=== PATIENT | male | born 1940 | race Caucasian/White ===

== ENCOUNTER 2016-08-30 03:05 | Inpatient (IN) ==
--- NOTE | 2016-08-30 03:53 | PROVIDER DOCUMENTATION ---
HPI-Musculoskeletal Pain/Inj - GENERAL Chief Complaint: Hip Injury Stated Complaint: leg pain Time Seen by Provider: 08/30/16 03:33 Source: patient, family - HX OF PRESENT ILLNESS-MUSKULOSKELTAL Nature of Presenting Problem: Pt c/o pain to R side after fall this am ~0100. says he fell about a week ago, did not see MD. Has had troublke walking since. His feet and leds have been swelling today. He did not hit his head in either fall, no LOC. Denies CP and SOB. No abd pain, no N/V. He is falling asleep as I talk to him Quality of Pain: reports: other (unable to determine) Severity in ED: moderate Onset/Duration: 1-3 hours ago Timing: still present Modifying Factors: worse with: movement, palpation Any recent injury?: Yes Locality of Occurance: Home Similar Symptoms Previously?: No Recently seen or treated by another doctor?: No - FALL INJURY Location of Pain/Injury: reports: pelvis, other (R hip) Pain Radiation: reports: no radiation Reason for Fall: reports: lost balance, other (see HPI) Loss of Consciousness: no loss of consciousness Injury Associated Symptoms: reports: joint pain - HIP/PELVIS PAIN/INJURY Hip Pain Location: reports: hip (R) Pain Radiation: reports: no radiation - LOWER EXTREMITY PAIN/INJURY Lower Extremities Pain: hip: right Context / Method of Injury: reports: fell Review of Systems - Adult - REVIEW OF SYSTEMS - ADULT Constitutional: reports: no symptoms reported Eyes: reports: no symptoms reported Ears, Nose, Mouth & Throat: reports: no symptoms reported Cardiovascular: reports: edema Respiratory: reports: no symptoms reported Gastrointestinal: reports: no symptoms reported Genitourinary: reports: no symptoms reported Musculoskeletal: reports: see HPI Integumentary: reports: no symptoms reported Neurological: reports: no symptoms reported Psychiatric: reports: no symptoms reported Endocrine: reports: no symptoms reported Hematologic/Lymphatic: reports: no symptoms reported Allergic/Immunologic: reports: no symptoms reported Past History - Adult - PAST MEDICAL HISTORY-ADULT Review of Records: reports: Medications Reviewed Major Childhood Illnesses: reports: denies history Cardiovascular: reports: denies history Respiratory: reports: COPD - IMMUNIZATION STATUS Childhood Immunizations: See Nurse Assessment Flu Vaccine: See Nurse Assessment - FAMILY HISTORY Family History: reviewed, not pertinent - SOCIAL HISTORY Smoking: denies Physical Exam-Injury Related - Physical Exam-Injury Related Initial Vital Signs Reviewed: Yes General Appearance: no apparent distress, other (somulent) Eyes: PERRL/EOMI, pink conjunctivae Head, Ears, Nose, Mouth & Throat: normocephalic/atraumatic, moist mucous membranes, normal ENT inspection, pharynx normal Neck: full range of motion, supple, normal inspection Respiratory: lungs clear, normal breath sounds, no pleuratic chest pain, no respiratory distress Cardiovascular: regular rate, rhythm, no gallop, no murmur Abdominal Exam: non tender, soft Back Exam: normal inspection, no CVA tenderness, no vertebral tenderness Extremity: pedal edema (4 + pretibial bilat), tenderness (R hip) Integumentary: normal color, warm/dry Neurologic: grossly normal, no motor/sensory deficits Psych/Mental Status: normal thought content, normal thought process Progress - PLAN OF CARE/RESULTS Progress/Plan/Lab Results: Vital Signs - 8 hr 08/30/16 03:31 Temperature 98.1 F Pulse Rate 96 H Respiratory Rate 20 Blood Pressure 173/75 O2 Sat by Pulse Oximetry 96 Laboratory Results - last 24 hr 08/30/16 08/30/16 03:30 03:30 WBC 8.42 RBC 3.51 L Hgb 10.8 L Hct 34.0 L MCV 96.9 MCH 30.8 MCHC 31.8 L RDW Std Deviation 12.9 Plt Count 226 MPV 9.1 Immature Gran % (Auto) 0.2 Neut % (Auto) 77.7 H Lymph % (Auto) 12.4 L Hanson % (Auto) 9.0 Eos % (Auto) 0.5 Baso % (Auto) 0.2 Immature Gran # (Auto) 0.02 Neut # (Auto) 6.54 H Lymph # (Auto) 1.04 L Hanson # (Auto) 0.76 H Eos # (Auto) 0.04 Baso # (Auto) 0.02 Sodium 136 Potassium 4.2 Chloride 91 L Carbon Dioxide 35 Anion Gap 10 BUN 20 Creatinine 0.9 Estimated GFR/1.73 m2 > 60 BUN/Creatinine Ratio 22 Glucose 79 Calculated Osmolality 273 Calcium 9.6 Total Bilirubin 0.44 AST 16 ALT 10 Alkaline Phosphatase 130 H Total Protein 6.9 Albumin 4.0 Globulin 2.9 Albumin/Globulin Ratio 1.4 Orders Category Date Time Status CHEST-1 VIEW [RAD] Stat Exams 08/30/16 04:20 Taken FEMUR 1 VIEW RIGHT [RAD] Stat Exams 08/30/16 03:35 Taken HEAD W/O CONTRAST [CT] Stat Exams 08/30/16 03:58 Taken HIP W/PELVIS BILAT 2 VIEWS [RAD] Stat Exams 08/30/16 03:35 Taken ABG [RESP] Routine Lab 08/30/16 03:46 Ordered CBC WITH DIFF [HEME] Stat Lab 08/30/16 03:30 Completed CMP [COMPREHENSIVE METABOLIC PANEL] [CHEM] Stat Lab 08/30/16 03:30 Completed PROTIME WITH INR [COAG] Stat Lab 08/30/16 03:30 Received PTT [COAG] Stat Lab 08/30/16 03:30 Received URINALYSIS W/POSS RFLX CULT [URINALYSIS] Stat Lab 08/30/16 04:30 Uncollected EKG [EKG] Stat Ther 08/30/16 04:30 Ordered Result Diagrams: 08/30/16 03:30 08/30/16 03:30 - XRAY 1 XRAY Study: Hip Impression: Abnormal XRAY Interpretation: R intertroch hip fx - CONSULTS/PCP/HOSPITALIST Notification #1 *Consult/PCP/Hospitalist*: García Time Discussed: 04:30 Consult Disposition: Will see in ED, Admit #2 Consult: Terrie Time Discussed: 04:40 Reason/Comments: hip fx Consult Disposition: other (will see as consult) Departure - Departure Date of Disposition Decision: 08/30/16 Time of Disposition Decision: 04:57 DIAGNOSIS: Intertrochanteric fracture of right hip Qualifiers: Encounter type: initial encounter Fracture type: closed Fracture alignment: displaced Qualified Code(s): S72.141A - Displaced intertrochanteric fracture of right femur, initial encounter for closed fracture Disposition: ADMITTED INPATIENT 09 Certified Medical Emergency: Emergent Condition: Good - Critical Care Note This patient required my direct & personal management of CC.: No
[2016-08-30 04:17] LABS: MANUAL DIFF NEEDED? NO
[2016-08-30 04:22] LABS: BASO% 0.2 % (0.0-0.8); EOS# 0.04 X1000 (0.0-0.7); EOS% 0.5 % (0.0-10.0); HEMOGLOBIN 10.8 g/dL (14.0-18.0); IMM GRAN# 0.02 X1000 (0.0-0.04); IMM GRAN% 0.2 % (0.0-0.5); LYMPH# 1.04 X1000 (1.2-3.4); LYMPH% 12.4 % (20.5-51.1); MCH 30.8 PG (27-31); MCHC 31.8 g/dL (33-37); MCV 96.9 FL (81-99); MONO# 0.76 X1000 (0.11-0.59); MPV 9.1 FL (7.4-10.4); NEUT% 77.7 % (42.2-75.2); PLT 226 X1000 (130-400); RBC 3.51 XMIL (4.7-6.1)
[2016-08-30 04:46] LABS: AGAP 10; ALKALINE PHOSPHATASE 130 U/L (32-122); BUN 20 mg/dL (8-22); CALCIUM 9.6 mg/dL (8.8-10.2); CHLORIDE 91 mmol/L (98-107); COSMO 273; GOT 16 U/L (10-34); GPT 10 U/L (10-44); POTASSIUM 4.2 mmol/L (3.5-5.1); SODIUM 136 mmol/L (136-145); TCO2 35 mmol/L (25-35); TOTAL BILIRUBIN 0.44 mg/dL (0.20-1.00); TOTAL PROTEIN 6.9 g/dL (6.3-8.3)
[2016-08-30 04:58] LABS: INR 1.06; PROTIME 11.2 Seconds (9.2-11.7); PTT 28.5 Seconds (22.0-36.0)
[2016-08-30 05:00] LABS: ALLEN TEST YES; BE 11.7 mmoll (-3.0-3.0); BLOOD TYPE ARTERIAL; DRAW SITE R RADIAL; METHB 0.7 % (0.0-1.5); O2(CT) 13.3 mL/dL (15.0-23.0); PO2(98.6) 69 mmHg (60-100); SAMPLE BLOOD; SAO2 96.8 % (95.0-100.0); pH(98.6) 7.43 (7.35-7.45)
[2016-08-30 05:01] LABS: MODALITY CANNULA
[2016-08-30 05:02] LABS: PCO2(98.6) 57 mmHg (35-45)
[2016-08-30] MEDS ORDERED: DILAUDID IV ONE (05:08)
[2016-08-30 05:16] LABS: URINE CULTURE NEEDED? NO; URINE MICRO REVIEW NEEDED? NO; URINE SOURCE CATH
[2016-08-30 05:36] LABS: BILIRUBIN URINE NEGATIVE (NEGATIVE); BLOOD URINE NEGATIVE (NEGATIVE); COLOR YELLOW; GLUCOSE URINE NEGATIVE (NEGATIVE); LEUKOCYTES URINE NEGATIVE (NEGATIVE); NITRITE URINE NEGATIVE (NEGATIVE); PROTEIN URINE TRACE mg/dL (NEGATIVE); SP GRAVITY URINE 1.018; TURBIDITY URINE CLEAR (CLEAR); UROBILINOGEN URINE NORMAL (NORMAL)
[2016-08-30 05:38] LABS: UR EPITHELIAL CELLS <10 /HPF (<10); URINE BACTERIA NEGATIVE /HPF; URINE RBC <10 /HPF (<10); URINE WBC <10 /HPF (<10)
--- NOTE | 2016-08-30 05:40 | HISTORY AND PHYSICAL ---
PRIMARY CARE PHYSICIAN: Dr. Cintron. CHIEF COMPLAINT: Status post fall. HISTORY OF PRESENTING ILLNESS: A 72-year-old male with a history of diabetes mellitus type 2, COPD, hypertension, who apparently had presented to the emergency department after he had a fall earlier in the night. Patient states that he developed a moderate amount of pain in the right hip. As for his family members, patient had a fall about a week ago also. He was evaluated in the ER. He had imaging done, and as per ER physician, it did show a right intertrochanteric fracture. Subsequently, patient will need hospitalization for further orthopedic evaluation. At the time my examination, he had denied any headache, fever, chills, chest pain, shortness of breath, hemoptysis or any weight changes. Complained of moderate amount of pain in the right hip. PAST MEDICAL HISTORY: Includes COPD, diabetes mellitus type 2, CHF, hypertension, hyperlipidemia, CVA. PAST SURGICAL HISTORY: Right carotid arterectomy. Right eye surgery. Back surgery. ALLERGIES: Codeine and penicillin. CURRENT MEDICATIONS: Listed in the MAR. SOCIAL HISTORY: He is a former smoker. He currently dips snuff. Denies any history of alcohol or illicit drug use. FAMILY HISTORY: Positive for coronary disease in mother. REVIEW OF SYSTEMS: Twelve point review of systems is listed as in HPI. Other systems negative. PHYSICAL EXAMINATION: GENERAL: Cooperative, friendly male. He is resting more comfortably now. VITAL SIGNS: Temperature 98.1 degrees, pulse 96, respirations 20, blood pressure 173/75, saturating 96% on room air. HEENT: Atraumatic, normocephalic. Extraocular movements intact. PERRLA. NECK: Supple. CHEST: Clear to auscultation. CARDIOVASCULAR: Regular rate and rhythm. ABDOMEN: Soft. Positive bowel sounds. EXTREMITIES: Right hip tenderness. NEURO: He is awake, alert, oriented x2. : No bladder distention. SKIN: Warm. LABORATORIES AND STUDIES: WBCs 8.42, hemoglobin 10.8, hematocrit 34.0, platelets 226,000. Sodium 136, potassium 4.2, chloride 91, CO2 35, BUN is 20, creatinine 0.9, glucose is 79. ASSESSMENT: A 75-year-old male with a history of COPD, hypertension and diabetes mellitus type 2. Apparently, had a fall earlier yesterday. He developed a moderate amount of pain in the right hip. He was evaluated in the ER and had imaging which was consistent with right intertrochanteric hip fracture. Subsequently, he will need hospitalization for further management. ASSESSMENT: 1. Right hip fracture. 2. Diabetes mellitus type 2. 3. Hypertension. PLAN: 1. We will admit patient to medical floor with telemetry. 2. We will keep patient NPO and give him adequate pain control. 3. We will consult Orthopedics. 4. We will monitor blood glucose and put patient on sliding scale insulin regimen. 5. We will monitor blood pressure. Resume antihypertensive agent. 6. The patient is on deep vein thrombosis prophylaxis with sequential compression devices. 7. We will continue to follow and reassess. cc: Rsuty Mariano MD
--- NOTE | 2016-08-30 05:43 | Diag Imaging Result Doc PS360 ---
EXAM: CHEST-1 VIEW HISTORY: falls TECHNIQUE: Supine AP COMPARISON: 03/09/2016 FINDINGS: The left hemidiaphragm is elevated. This is similar to the prior exam. The vessels are not distended. No cardiomegaly. No pleural effusions identified. No contusions or pneumothoraces. IMPRESSION: Negative chest. Electronically signed by Padilla Hussein 08/30/2016 5:41 AM
--- NOTE | 2016-08-30 05:49 | Diag Imaging Result Doc PS360 ---
EXAM: HIP W/PELVIS BILAT 2 VIEWS HISTORY: FALL TECHNIQUE: Three views COMPARISON: None. FINDINGS: There is a fracture to the right femoral neck. Femoral head remains in the acetabulum. The femoral shaft is slightly rotated. IMPRESSION: Right femoral neck fracture Electronically signed by Padilla Hussein 08/30/2016 5:46 AM
[2016-08-30] MEDS ORDERED: ZOFRAN IV PRN (05:53)
--- NOTE | 2016-08-30 05:55 | Diag Imaging Result Doc PS360 ---
EXAM: FEMUR 1 VIEW RIGHT HISTORY: FALL TECHNIQUE: Two views COMPARISON: None. FINDINGS: There is a femoral neck fracture. Femoral head remains in the acetabulum. Femoral shaft is rotated. The mid shaft is poorly imaged. IMPRESSION: Right femoral neck fracture. Electronically signed by Padilla Hussein 08/30/2016 5:53 AM
--- NOTE | 2016-08-30 06:04 | Diag Imaging Result Doc PS360 ---
EXAM: HEAD W/O CONTRAST HISTORY: AMS TECHNIQUE: COMPARISON: 03/06/2016 FINDINGS: No parenchymal hemorrhage. No epidural or subdural hematoma. No subarachnoid hemorrhage. No mass identified on this noncontrasted exam. No hydrocephalus. There are chronic microvascular ischemic changes in addition to atrophy. Small old lacunae in the left thalamus. No sinus opacification. IMPRESSION: No hemorrhage. Atrophy with chronic microvascular ischemic changes in addition to a tiny old left infarct. A preliminary report was given at 4:54 AM. Electronically signed by Padilla Hussein 08/30/2016 6:01 AM
[2016-08-30] MEDS: HUMULIN R SUBQ SCH ×4 (06:49→22:16)
[2016-08-30] MEDS: DUONEB (A & A) INH SCH ×5 (07:49→23:08)
--- NOTE | 2016-08-30 13:05 | PROGRESS NOTE ---
DATE: 08/30/2016 SUBJECTIVE: Mr. Joshi's blood sugar is 115. He had a fracture of the right femoral neck. His vital signs are stable at the present time. He is supposed to have surgery tomorrow under spinal anesthesia. He gets hydromorphone IV as well as breathing treatment. Overall condition is unchanged. He is seen by Dr. Falcon. -8 cc: Uriel Cintron MD
[2016-08-30] MEDS ORDERED: LASIX PO PRN (14:12)
--- NOTE | 2016-08-30 14:50 | CONSULTATION ---
DATE OF CONSULTATION: 08/30/2016 CHIEF COMPLAINT: I broke my hip. HISTORY OF PRESENT ILLNESS: 75-year-old male with multiple medical issues status post a fall yesterday evening. He is admitted the hospital with right hip pain. He was found to have a displaced femoral neck fracture. I was consulted for orthopedic management. Presently he reports pain and tenderness about the right hip. PAST MEDICAL HISTORY: Significant for COPD, diabetes type 2, heart failure, hypertension, hyperlipidemia and CVA. He has a history of carotid artery endarterectomy and eye surgery and back surgery in the past. MEDICATIONS: Are as listed per his MAR. ALLERGIES: Codeine and penicillin. SOCIAL HISTORY: Former smoker, does not use any drug or alcohol use. EXAMINATION: Today reveals tenderness over the right hip. Compartments were soft. The leg shortened and externally rotated. He is nontender over the remainder of the leg. IMAGING: X-rays reviewed show a displaced femoral neck fracture of the right hip. ASSESSMENT: Displaced right femoral neck fracture. PLAN: The patient has been on Plavix. Will need to let that dissipate and consider hemiarthroplasty of the hip in 1-2 days. Will probably plan on this Thursday after the Plavix has resolved somewhat and he is medically stabilized. Thanks once again for asking us to see him. Sincerely, cc: MD Uriel Mason MD
[2016-08-30] MEDS: HYZAAR 50/12.5 MG PO SCH (15:21)
[2016-08-30] MEDS: PRILOSEC PO SCH (15:22)
[2016-08-30] MEDS: GLUCOPHAGE XR PO SCH ×2 (15:22→18:25)
[2016-08-30] MEDS: FLOMAX PO SCH (15:23)
[2016-08-30] MEDS: AMARYL PO SCH ×2 (15:23→18:24)
[2016-08-30] MEDS: NORCO-7.5 PO SCH ×3 (15:23→19:34)
[2016-08-30] MEDS ORDERED: DUONEB (A & A) INH SCH (15:30)
[2016-08-30] MEDS: ZYLOPRIM PO SCH (22:18)
[2016-08-30] MEDS: ATIVAN PO SCH (22:18)
[2016-08-30] MEDS: NEURONTIN PO SCH (22:18)
[2016-08-31] MEDS: DUONEB (A & A) INH SCH ×4 (04:00→15:28)
[2016-08-31 05:42] LABS: MANUAL DIFF NEEDED? NO
[2016-08-31 06:00] LABS: BASO% 0.3 % (0.0-0.8); EOS# 0.04 X1000 (0.0-0.7); EOS% 0.5 % (0.0-10.0); HEMOGLOBIN 10.2 g/dL (14.0-18.0); LYMPH# 0.74 X1000 (1.2-3.4); LYMPH% 9.7 % (20.5-51.1); MCH 30.5 PG (27-31); MCHC 31.9 g/dL (33-37); MCV 95.8 FL (81-99); MONO# 0.83 X1000 (0.11-0.59); MONO% 10.9 % (1.7-9.3); MPV 9.7 FL (7.4-10.4); NEUT% 78.6 % (42.2-75.2); PLT 196 X1000 (130-400); RBC 3.34 XMIL (4.7-6.1)
[2016-08-31 06:11] LABS: AGAP 9; BUN 16 mg/dL (8-22); CALCIUM 9.1 mg/dL (8.8-10.2); CHLORIDE 90 mmol/L (98-107); COSMO 268; POTASSIUM 4.3 mmol/L (3.5-5.1); SODIUM 133 mmol/L (136-145); TCO2 34 mmol/L (25-35)
[2016-08-31] MEDS: HUMULIN R SUBQ SCH ×3 (07:25→17:27)
[2016-08-31] MEDS ORDERED: NEOSPORIN G.U. IRRIGANT ONE (07:26)
[2016-08-31] MEDS ORDERED: KEFZOL 2 GM/D5W 4 GM/100 ML IVPB ONE (07:49)
[2016-08-31] MEDS ORDERED: BIDEX PO SCH (09:00)
[2016-08-31] MEDS ORDERED: JANUVIA PO SCH (09:00)
[2016-08-31] MEDS ORDERED: MILK OF MAGNESIA PO PRN (10:33)
[2016-08-31] MEDS ORDERED: ZOFRAN IV PRN (10:33)
[2016-08-31] MEDS ORDERED: HALDOL IV PRN (10:33)
[2016-08-31] MEDS ORDERED: NS 1,000 ML IV SCH (10:33)
[2016-08-31] MEDS ORDERED: MORPHINE IV PRN (10:33)
[2016-08-31] MEDS ORDERED: OXY IR PO PRN (10:33)
[2016-08-31] MEDS: NEURONTIN PO SCH (11:53)
[2016-08-31] MEDS: GLUCOPHAGE XR PO SCH ×3 (11:53→16:47)
[2016-08-31] MEDS: HYZAAR 50/12.5 MG PO SCH (11:54)
[2016-08-31] MEDS: ATIVAN PO SCH (11:54)
[2016-08-31] MEDS: ZYLOPRIM PO SCH (11:54)
[2016-08-31] MEDS: NORCO-7.5 PO SCH ×3 (11:54→16:47)
[2016-08-31] MEDS: AMARYL PO SCH ×3 (11:54→16:47)
[2016-08-31] MEDS: PRILOSEC PO SCH (11:55)
[2016-08-31] MEDS: FLOMAX PO SCH (11:55)
[2016-08-31] MEDS: TYLENOL PO SCH ×3 (14:35→18:15)
--- NOTE | 2016-08-31 15:12 | PROGRESS NOTE ---
DATE: 08/31/2016 SUBJECTIVE: had his hip surgery redone on the right side by Dr. Falcon. His hemoglobin is 10.2, hematocrit is 32, electrolyte status is stable. BUN and creatinine are normal. Arterial blood gases had revealed a PO2 of 69, pCO2 of 57, which is fair for him. Blood sugar is stable. OBJECTIVE: Vital signs: Stable. Lungs: Clear. We will continue with the current management. cc: Uriel Cintron MD
[2016-08-31 15:26] VITALS: BP 100/58
[2016-08-31] MEDS ORDERED: FENTANYL ONE (15:51)
[2016-08-31] MEDS ORDERED: DIPRIVAN 1% ONE (15:51)
[2016-08-31] MEDS ORDERED: KEFZOL 1 GM/D5W 1 GM/50 ML IVPB IV SCH (16:00)
--- NOTE | 2016-08-31 16:07 | OPERATIVE NOTE ---
PROCEDURE DATE: 08/31/2016 PREOPERATIVE DIAGNOSIS: Displaced right femoral neck fracture. POSTOPERATIVE DIAGNOSIS: Displaced right femoral neck fracture. PROCEDURE: Hemiarthroplasty with bipolar hip implant, right hip. SURGEON: Levon Falcon MD. ANESTHESIA: General. COMPLICATION: None. PROCEDURE IN DETAIL: This is a 75-year-old male with a displaced femoral neck fracture, presents for surgical reduction and fixation of the hip. Risks, benefits, and no guarantees were discussed and he is willing to proceed. He was taken to the operating room and satisfactory anesthesia obtained. The right hip was prepped and draped in the usual sterile fashion. A time-out was taken to confirm operative site, procedure, and patient. The patient was positioned in the lateral position with the right hip upward on pegboard, bony prominences padded, and neutral alignment maintained of the spine. Prep and drape of the right hip was undertaken. After a proper time-out for patient, site, procedure, and extremity, the posterior approach to the right hip was undertaken. Roughly a 10-12 cm incision was made centered over the greater trochanter. Dissection was carried down through the skin and deep fascia. A Charnley retractor was inserted. The piriformis and external rotators were released off the back of the hip capsule and reflected to protect the sciatic nerve. A capsulotomy incision was made to expose the femoral neck fracture. An oscillating saw was used to smooth off the femoral neck at roughly 45 degrees angle. The femoral head was removed and sized to a size 57 outer diameter head. Sequential broaching with a QBEuy Corail broach system was undertaken up to a size 16 stem. This had good axial and rotational stability. High offset collar/neck was best utilized for reduction with a +5 neck length. The trial implant was removed and a Corail high-offset size 16 stem impacted into the proximal femur with secure axial and rotational stability in roughly 10 degrees of anteversion. A 28 inner diameter head with a +5 neck with a 57 outer diameter bipolar head was impacted on the Lopez taper and the hip reduced. Final range of motion revealed no instability in extension with 90 degrees of flexion and neutral adduction and internal rotation at 45 degrees without any dislocation. The wound was copiously irrigated with irrigant and then closed with 0 Vicryl in the posterior capsule and piriformis, #1 Vicryl in the deep fascia, 2-0 Vicryl in the subcutaneous, and skin alvina on the skin edges. The patient has recovered from anesthesia and transferred to the recovery room in stable condition. No intraoperative complications were noted. Instrument count and sponge count was correct at the time of closure. cc: MD Uriel Mason MD
[2016-08-31] MEDS ORDERED: LEVOPHED 8 MG in D5 1/2 NS 250 ML IV SCH (19:45)
[2016-08-31] MEDS ORDERED: COLACE PO SCH (21:00)
--- NOTE | 2016-08-31 21:34 | DISCHARGE SUMMARY ---
ADMISSION DATE: 08/30/2016 DISCHARGE DATE: 08/31/2016 DATE : 08/31/2016. HOSPITAL COURSE: Mr. Joshi was admitted with fracture of the right femur. Laboratory and x-ray data in the hospital, CT of the head revealed atrophy with chronic microvascular changes with tiny left old infarct in the left cerebrum. Hip and pelvis x-rays revealed the presence of right femoral neck fracture. Laboratory data included CBC that was unremarkable. INR was 1.06. Blood gases revealed pH 7.43, pCO2 57, PO2 69, bicarb was 34. This was normal for him with his severe COPD. Electrolytes are normal. BUN 16. Creatinine was 0.7. Urinalysis was negative. He was doing fairly well. He was operated partially by . He had displaced right femoral neck fracture and he hemiarthroplasty with bipolar hip implant in the right hip. This was done this morning and he suddenly had a cardiopulmonary arrest. He was coded and we intubated him and he was given CPR. Epinephrine was given about 12-15 times. He had ventricular fibrillation while the procedure was performed and he was shocked twice. He continued to do poorly, and I discussed with his and they decided that since the code was carried on for about 20 minutes, we decided that we will call it off. FINAL DIAGNOSIS: Cardiopulmonary arrest, possibly pulmonary embolism. cc: Uriel Cintron MD
--- NOTE | 2016-09-01 07:14 | EKG Report ---
Test Performed on : 08/30/2016 05:26:27 AM Test Reason : pre-op Blood Pressure : / mmHG Vent. Rate : 097 BPM Atrial Rate : 097 BPM P-R Int : 182 ms QRS Dur : 148 ms QT Int : 384 ms P-R-T Axes : 055 -39 026 degrees QTc Int : 487 ms Normal sinus rhythm. Left axis deviation Nonspecific intraventricular block Abnormal ECG When compared with ECG of 27-FEB-2016 16:44, No significant change was found Unconfirmed Result
[2016-09-01] MEDS ORDERED: FERROUS SULFATE PO SCH (08:00)
[2016-09-01] MEDS ORDERED: QUELICIN (DOSE) ONE (10:13)
[2016-09-01] MEDS ORDERED: XYLOCAINE-MPF 2% ONE (10:13)
[2016-09-01] MEDS ORDERED: ZEMURON ONE (10:13)
[2016-09-01] MEDS ORDERED: LR 1,000 ML ONE (10:13)
[2016-09-01] MEDS ORDERED: NEOSTIGMINE ONE (10:13)
[2016-09-01] MEDS ORDERED: ROBINUL ONE (10:13)
== END 2016-08-31 19:34 | disposition expired ==
LOC: ED 03:05 → 4N 05:17 → SUATTDRO 05:17 → 4N 05:47
PROVIDERS: ADMIT Internal Medicine; ATTEND Internal Medicine